=== PATIENT | female | born 1990 | race Caucasian/White ===

== ENCOUNTER 2018-04-06 15:08 | Outpatient (CLI) | payer BC, MEDICAID ==
[~2018-04-06] VITALS: Ht 177.8 cm; Wt 94.5 kg
[2018-04-06 15:17] VITALS: Ht 177.8 cm; Wt 94.5 kg
[2018-04-06] MEDS ORDERED: PRENAVITE1 TAB PO (15:18)
[2018-04-06] MEDS ORDERED: NEURONTIN 300300 MG PO (15:18)
[2018-04-06] MEDS ORDERED: CYCLOBENZAPRINE10 MG PO (15:18)
[2018-04-06 16:12] VITALS: BP 131/83
[2018-04-06 16:13] LABS: APPEARANCE CLEAR (CLEAR); BILIRUBIN NEGATIVE (NEGATIVE); COLOR COLORLESS (YELLOW); GLUCOSE NEGATIVE (NEGATIVE); KETONE NEGATIVE (NEGATIVE); NITRITE NEGATIVE (NEGATIVE); PROTEIN NEGATIVE (NEGATIVE); SPECIFIC GRAVITY 1.015 (1.005-1.020); UROBILINOGEN NORMAL (NORMAL)
== END 2018-04-06 16:15 | disposition home or self-care (01) ==
LOC: D.LDO 15:08 → D.ER 15:08 → EDSTATUS 15:48 → D.LDO 16:15
PROVIDERS: Family Medicine
DX: O26.892 Other specified pregnancy related conditions, second trimester (principal); Z3A.26 26 weeks gestation of pregnancy; V43.52XA Car driver injured in collision with other type car in traffic accident, initial encounter; Y93.89 Activity, other specified; Y92.410 Unspecified street and highway as the place of occurrence of the external cause